=== PATIENT | male | born 1995 | race Caucasian/White ===

== ENCOUNTER 2018-01-19 11:05 | Emergency (ER) | payer SELFPAY ==
--- NOTE | 2018-01-19 13:51 | EDPHYS ---
Physician Documentation [facility] Name: Joshua Guadalupe Jr Age: 22 yrs Sex: Male : 1995 Arrival Date: 01/19/2018 Time: 11:06 Bed Treatment Private MD: None, None ED Physician Selvin Meneses HPI: 01/19 13:36 This 22 yrs old Male presents to ER via Ambulatory with complaints of Insect jmm Bite. 13:36 The patient presents with pain, that is acute, swelling. The complaints affect the jmm medial aspect of left thigh. Onset: The symptoms/episode began/occurred last night. Modifying factors: The symptoms are alleviated by nothing. the symptoms are aggravated by nothing. Associated signs and symptoms: Pertinent negatives fever. Treatment prior to arrival includes: home drainage. This is a 22 year old male with no chronic medical conditions that presents to the ED with left medial thigh swelling. Patient states he popped it last night which has allowed for relief. Patient denies fever. . Historical: - Allergies: 11:33 NKA; iw - Home Meds: :33 None [Active]; iw - PMHx: :33 None; iw - PSHx: 11:33 Hernia repair; iw - Immunization history:: Adult Immunizations not up to date. - Social history:: Smoking status: Patient uses tobacco products, smokes one-half pack cigarettes per day. - Ebola Screening: : Patient negative for fever greater than or equal to 101.5 degrees Fahrenheit, and additional compatible Ebola Virus Disease symptoms Patient denies exposure to infectious person Patient denies travel to an Ebola-affected area in the 21 days before illness onset No symptoms or risks identified at this time. - : The history from the nurse's notes was reviewed. ROS: 13:36 Constitutional: Negative for fever, chills, and weight loss, Cardiovascular: Negative jmm for chest pain, palpitations, and edema, Respiratory: Negative for shortness of breath, cough, wheezing, and pleuritic chest pain. 13:36 Skin: Positive for swelling. 13:36 All other systems are negative. Exam: 13:36 Head/Face: atraumatic. Eyes: EOMI, no conjunctival erythema appreciated Chest/axilla: jmm Normal chest wall appearance and motion. Cardiovascular: Regular rate and rhythm. No edema appreciated Respiratory: Normal respirations, no respiratory distress appreciated 13:36 Constitutional: The patient appears in no acute distress, alert, awake. 13:36 Skin: non fluctuant swelling is noted to the left medial thigh, area is mildly tender to palpation. 13:36 Neuro: Orientation: is normal, Mentation: is normal, Memory: is normal. 13:36 Psych: Behavior/mood is pleasant, cooperative. Vital Signs: 11:33 BP 133 / 53; Pulse 77; Resp 16; Temp 97.3(TE); Pulse Ox 98% on R/A; Weight 114.76 kg; iw Height 6 ft. 1 in. (185.42 cm); Pain 5/10; 11:33 Body Mass Index 33.38 (114.76 kg, 185.42 cm) iw MDM: 13:36 Patient medically screened. [facility] 13:36 Data interpreted: Pulse oximetry: on room air is 98 %. Interpretation: normal. [facility] 13:49 Data reviewed: vital signs, nurses notes. Counseling: I had a detailed discussion with mariah the patient and/or guardian regarding: the historical points, exam findings, and any diagnostic results supporting the discharge/admit diagnosis, the need for outpatient follow up, to return to the emergency department if symptoms worsen or persist or if there are any questions or concerns that arise at home. Administered Medications: No medications were administered Disposition: 16:40 Co-signature as Attending Physician, Selvin Meneses MD. rn Disposition: 01/19/18 13:50 Discharged to Home. Impression: Cellulitis of the left leg. - Condition is Stable. - Discharge Instructions: Skin Abscess. - Prescriptions for Bactrim DS 800- 160 mg Oral Tablet - take 1 tablet by ORAL route every 12 hours for 10 days; 20 tablet. - Medication Reconciliation Form, Thank You Letter, Antibiotic Education, Prescription Opioid Use, Work release form form. - Follow up: Private Physician; When: 2 - 3 days; Reason: Recheck today's complaints, Continuance of care, Re-evaluation by your physician. Signatures: Jesus Schmidt PA PA jmm Williams, Irene, Selvin Cormier RN, MD MD rn Smirch, Shelby, RN RN ss Corrections: (The following items were deleted from the chart) 14:14 13:50 01/19/2018 13:50 Discharged to Home. Impression: Cellulitis of the left leg. ss Condition is Stable. Forms are Medication Reconciliation Form, Thank You Letter, Antibiotic Education, Prescription Opioid Use. Follow up: Private Physician; When: 2 - 3 days; Reason: Recheck today's complaints, Continuance of care, Re-evaluation by your physician. balbir 17:49 11:33 The history from the nurse's notes was reviewed. balbir mcgregor
--- NOTE | 2018-01-19 13:51 | ER ---
Nurse's Notes [facility] Name: Joshua Guadalupe Jr Age: 22 yrs Sex: Male : 1995 Arrival Date: 01/19/2018 Time: 11:06 Bed Treatment Private MD: None, None Diagnosis: Cellulitis of the left leg Presentation: 01/19 11:31 Presenting complaint: Patient states: popped something on his leg last night, left a iw hole in leg, quarter size, left inner thigh, now it's more painful. Transition of care: patient was not received from another setting of care. Onset of symptoms was January 19, 2018. Risk Assessment: Do you want to hurt yourself or someone else? Patient reports no desire to harm self or others. Initial Sepsis Screen: Does the patient meet any 2 criteria? No. Patient's initial sepsis screen is negative. Does the patient have a suspected source of infection? No. Patient's initial sepsis screen is negative. Care prior to arrival: None. 11:31 Method Of Arrival: Ambulatory iw 11:31 Acuity: SIMIN 4 iw Historical: - Allergies: 11:33 NKA; iw - Home Meds: 11:33 None [Active]; iw - PMHx: 11:33 None; iw - PSHx: 11:33 Hernia repair; iw - Immunization history:: Adult Immunizations not up to date. - Social history:: Smoking status: Patient uses tobacco products, smokes one-half pack cigarettes per day. - Ebola Screening: : Patient negative for fever greater than or equal to 101.5 degrees Fahrenheit, and additional compatible Ebola Virus Disease symptoms Patient denies exposure to infectious person Patient denies travel to an Ebola-affected area in the 21 days before illness onset No symptoms or risks identified at this time. - : The history from the nurse's notes was reviewed. Vital Signs: 11:33 BP 133 / 53; Pulse 77; Resp 16; Temp 97.3(TE); Pulse Ox 98% on R/A; Weight 114.76 kg; iw Height 6 ft. 1 in. (185.42 cm); Pain 5/10; 11:33 Body Mass Index 33.38 (114.76 kg, 185.42 cm) iw ED Course: 11:06 Patient arrived in ED. sb2 11:07 None, None is Private Physician. sb2 11:32 Triage completed. iw 11:33 Arm band placed on. iw 13:15 Jesus Schmidt PA is PHCP. balbir 13:15 Selvin Meneses MD is Attending Physician. balbir Administered Medications: No medications were administered Outcome: 13:50 Discharge ordered by . balbir 14:14 Patient left the ED. Signatures: Jesus Schmidt PA PA jmm Williams, Irene RN RN Monique Smith RN RN Janny Cardenas sb2 Corrections: (The following items were deleted from the chart) 17:49 11:33 The history from the nurse's notes was reviewed. balbir mcgregor
[2018-01-19 21:07] VITALS: BP 133/53; TEMP 97.3; O2SAT 98
== END 2018-01-19 14:14 | disposition home or self-care (01) ==
LOC: ER 11:05
DX: L03.116 Cellulitis of left lower limb (principal); F17.210 Nicotine dependence, cigarettes, uncomplicated
CPT/HCPCS: 99281

== ENCOUNTER 2018-09-26 11:56 | Emergency (ER) | payer SELFPAY ==
--- NOTE | 2018-09-26 12:55 | ER ---
Nurse's Notes [facility] Name: Joshua Guadalupe Jr Age: 23 yrs Sex: Male : 1995 Arrival Date: 09/26/2018 Time: 11:59 Bed 5 Private MD: Diagnosis: Lower abdominal pain, unspecified;Unspecified abdominal hernia Presentation: 09/26 12:02 Presenting complaint: Patient states: since Friday, i had a pain on my L groin area hj and i had a hernia repair on my R groin, denies fever and chills;. Transition of care: patient was not received from another setting of care. Onset of symptoms was September 26, 2018. Risk Assessment: Do you want to hurt yourself or someone else? Patient reports no desire to harm self or others. Initial Sepsis Screen: Does the patient meet any 2 criteria? No. Patient's initial sepsis screen is negative. Does the patient have a suspected source of infection? No. Patient's initial sepsis screen is negative. Care prior to arrival: None. 12:02 Method Of Arrival: Ambulatory 12:02 Acuity: SIMIN 3 hj Triage Assessment: 12:08 General: Appears in no apparent distress. comfortable, Behavior is calm, cooperative, bp appropriate for age. Pain: Complains of pain in pelvis. EENT: No deficits noted. Neuro: No deficits noted. Cardiovascular: No deficits noted. Respiratory: No deficits noted. GI: No signs and/or symptoms were reported involving the gastrointestinal system. : Reports pain scrotum. Derm: No deficits noted. Musculoskeletal: No deficits noted. Historical: - Allergies: 12:03 NKA; hj - PMHx: 12:03 Hernia; hj - PSHx: 12:03 Hernia repair; hj - Immunization history:: Adult Immunizations up to date. - Social history:: Smoking status: Patient/guardian denies using tobacco. - Ebola Screening: : No symptoms or risks identified at this time. - Family history:: not pertinent. - Hospitalizations: : No recent hospitalization is reported. Screenin:10 Abuse screen: Denies threats or abuse. Denies injuries from another. Nutritional bp screening: No deficits noted. Tuberculosis screening: No symptoms or risk factors identified. Fall Risk None identified. Assessment: 12:10 General: SEE TRIAGE NOTE. bp 12:37 Reassessment: PER MD, PT CLEARED FOR MSE. bp Vital Signs: 12:04 BP 137 / 54; Pulse 73; Resp 18; Temp 98.1(O); Pulse Ox 98% on R/A; Weight 113.4 kg; hj Height 6 ft. 1 in. (185.42 cm); Pain 7/10; 12:04 Body Mass Index 32.98 (113.40 kg, 185.42 cm) ED Course: 11:59 Patient arrived in ED. mr 12:03 Triage completed. hj 12:03 Arm band placed on left wrist. hj 12:08 Doug Wang, RN is Primary Nurse. bp 12:10 Patient has correct armband on for positive identification. Placed in gown. Bed in low bp position. Call light in reach. Side rails up X2. Adult w/ patient. 12:22 Selvin Meneses MD is Attending Physician. rn 12:37 No provider procedures requiring assistance completed. Patient did not have IV access bp during this emergency room visit. Administered Medications: No medications were administered Outcome: 12:37 Medical screen evaluation completed per provider. Patient declined treatment. bp 12:37 Condition: stable 12:37 Following a medical screening exam, the patient was provided information regarding alternative care sites and resources available per registration personnel. 12:54 Discharge ordered by . rn 12:56 Patient left the ED. aj Signatures: Suzanne Romo RN Chantell Hennessy mr Selvin Meneses MD MD rn Joaquin, Henry, RN RN hj Peltier, Brian, PATRICIO RN bp Corrections: (The following items were deleted from the chart) 12:05 12:04 Pulse 73bpm; Resp 18bpm; Pulse Ox 98% RA; Temp 98.1F Oral; 113.4 kg; Height 6 ft. hj 1 in.; BMI: 32.9; Pain 7/10; hj
--- NOTE | 2018-09-26 12:55 | EDPHYS ---
Physician Documentation [facility] Name: Joshua Guadalupe Jr Age: 23 yrs Sex: Male : 1995 Arrival Date: 09/26/2018 Time: 11:59 Bed 5 Private MD: ED Physician Selvin Meneses HPI: 09/26 12:48 This 23 yrs old Male presents to ER via Ambulatory with complaints of Groin rn Pain. 12:48 The patient presents with abdominal pain in the lower abdomen. rn 12:48 Onset: The symptoms/episode began/occurred 3 day(s) ago. The symptoms do not radiate. rn Associated signs and symptoms: Pertinent positives: constipation, Pertinent negatives: blood in stools, dysuria, fever, testicular pain, vomiting, vomiting blood. The symptoms are described as achy. Modifying factors: The symptoms are alleviated by nothing, the symptoms are aggravated by bowel movements. Severity of pain: At its worst the pain was mild in the emergency department the pain is unchanged. The patient has not experienced similar symptoms in the past. The patient has not recently seen a physician. REports left groin/abd pain, intermittent, worse with bowel movement and passing gas, reports similar to previous right sided hernia but doesn't feel any swelling. No fever/vomiting. No blood in stool. . Historical: - Allergies: 12:03 NKA; hj - PMHx: 12:03 Hernia; hj - PSHx: 12:03 Hernia repair; hj - Immunization history:: Adult Immunizations up to date. - Social history:: Smoking status: Patient/guardian denies using tobacco. - Ebola Screening: : No symptoms or risks identified at this time. - Family history:: not pertinent. - Hospitalizations: : No recent hospitalization is reported. ROS: 12:48 Constitutional: Negative for fever, chills, and weight loss, Eyes: Negative for injury, rn pain, redness, and discharge, Cardiovascular: Negative for chest pain, palpitations, and edema, Respiratory: Negative for shortness of breath, cough, wheezing, and pleuritic chest pain, Abdomen/GI: Negative for nausea, vomiting, diarrhea MS/Extremity: Negative for injury and deformity, Skin: Negative for injury, rash, and discoloration, Neuro: Negative for headache, weakness, numbness, tingling, and seizure. Exam: 12:48 Constitutional: This is a well developed, well nourished patient who is awake, alert, rn and in no acute distress. Head/Face: Normocephalic, atraumatic. Eyes: Pupils equal round and reactive to light, extra-ocular motions intact. Lids and lashes normal. Conjunctiva and sclera are non-icteric and not injected. Cornea within normal limits. Periorbital areas with no swelling, redness, or edema. Cardiovascular: No pulse deficits. Respiratory: No increased work of breathing, no retractions or nasal flaring. Abdomen/GI: Soft, non-tender Male : Normal genitalia with no discharge or lesions. No masses or hernia palpated in inguinal canal. MS/ Extremity: Pulses equal, no cyanosis. Neurovascular intact. Full, normal range of motion. Equal circumference. Neuro: Awake and alert, GCS 15, oriented to person, place, time, and situation. Cranial nerves II-XII grossly intact. Motor strength 5/5 in all extremities. Sensory grossly intact. Cerebellar exam normal. Normal gait. Vital Signs: 12:04 BP 137 / 54; Pulse 73; Resp 18; Temp 98.1(O); Pulse Ox 98% on R/A; Weight 113.4 kg; hj Height 6 ft. 1 in. (185.42 cm); Pain 7/10; 12:04 Body Mass Index 32.98 (113.40 kg, 185.42 cm) hj MDM: 12:22 Patient medically screened. rn 12:48 Differential diagnosis: hernia, constipation, gas trapping. Data reviewed: vital signs, rn nurses notes, and as a result, I will discharge patient. Counseling: I had a detailed discussion with the patient and/or guardian regarding: the historical points, exam findings, and any diagnostic results supporting the discharge/admit diagnosis, the need for outpatient follow up, to return to the emergency department if symptoms worsen or persist or if there are any questions or concerns that arise at home. Special discussion: I discussed with the patient/guardian in detail that at this point there is no indication for admission to the hospital. It is understood, however, that if the symptoms persist or worsen the patient needs to return immediately for re-evaluation. Based on the history and exam findings, there is no indication for further emergent testing or inpatient evaluation. I discussed with the patient/guardian the need to see the general surgeon for further evaluation of the symptoms. ED course: Offered patient ct abdomen to further evaluate pain, possible small direct hernia given location and worsening with pressure/bowel movements, relieved by passing gas. Patient declines, and wishes to f/u as outpt. Return precautions given and understood.. Administered Medications: No medications were administered Disposition: 09/26/18 12:54 Discharged to Home as Medical Screen. Impression: Lower abdominal pain, unspecified, Unspecified abdominal hernia. - Condition is Stable. - Discharge Instructions: Abdominal Pain, Adult, Hernia, Adult. - Medication Reconciliation Form, Thank You Letter, Antibiotic Education, Prescription Opioid Use form. - Follow up: Private Physician; When: As needed; Reason: Recheck today's complaints, Re-evaluation by your physician. - Problem is new. - Symptoms have improved. Signatures: Suzanne Romo RN RN Selvin Tucker MD MD rn Joaquin, Henry, RN RN hj Peltier, Brian, RN RN bp Corrections: (The following items were deleted from the chart) 12:56 12:54 09/26/2018 12:54 Discharged to Home as Medical Screen. Impression: Lower aj abdominal pain, unspecified; Unspecified abdominal hernia. Condition is Stable. Forms are Medication Reconciliation Form, Thank You Letter, Antibiotic Education, Prescription Opioid Use. Follow up: Private Physician; When: As needed; Reason: Recheck today's complaints, Re-evaluation by your physician. Problem is new. Symptoms have improved. rn
[2018-09-26 13:15] VITALS: BP 137/54; TEMP 98.1; O2SAT 98
== END 2018-09-26 12:56 | disposition home or self-care (01) ==
LOC: ER 11:56
DX: K46.9 Unspecified abdominal hernia without obstruction or gangrene (principal)
CPT/HCPCS: 99281

== ENCOUNTER 2019-04-07 12:21 | Emergency (ER) | payer SELFPAY ==
--- NOTE | 2019-04-07 13:02 | RAD REPORT ---
EXAM DESCRIPTION: RAD - Chest Pa And Lat (2 Views) - 04/07/2019 12:55 pm CLINICAL HISTORY: Congestion;Cough Chest pain. COMPARISON: Chest Single View dated 01/06/2017 FINDINGS: Mild viral infiltrate/reactive airway disease pattern is evident. No focal consolidation t ypical of bacterial pneumonia seen. The heart is normal in size. No displaced fractures.
[2019-04-07] MEDS ORDERED: ALBUTEROL 2.5 MG/3 ML NEB SOL ONE (13:34)
[2019-04-07] MEDS ORDERED: IPRATROPIUM BROM 0.5MG/2.5ML ONE (13:34)
--- NOTE | 2019-04-07 14:34 | EDPHYS ---
Physician Documentation [facility] Name: Joshua Guadalupe Jr Age: 23 yrs Sex: Male : 1995 Arrival Date: 04/07/2019 Time: 12:22 Bed 23 Private MD: ED Physician Georgi Ward HPI: 04/07 13:39 This 23 yrs old Male presents to ER via Ambulatory with complaints of Cough, kb Chest Congestion. 13:39 The patient or guardian reports cough, that is intermittent, described as moderate, kb with no sputum. Onset: The symptoms/episode began/occurred 2 day(s) ago. Severity of symptoms: At their worst the symptoms were moderate, in the emergency department the symptoms are unchanged. Modifying factors: The symptoms are alleviated by nothing, the symptoms are aggravated by nothing. Associated signs and symptoms: The patient has no apparent associated signs or symptoms. The patient has not experienced similar symptoms in the past. The patient has not recently seen a physician. Pt reports cough and congestion for 2 days. States everyone in the house have had the same thing and he is just the last to get it. States everyone got over it pretty fast, but his is persisting. Historical: - Allergies: 12:31 NKA; ca1 - Home Meds: 12:31 None [Active]; ca1 - PMHx: 12:31 Hernia; ca1 - PSHx: 12:31 Hernia repair; ca1 - Immunization history:: Adult Immunizations up to date, Flu vaccine is not up to date. - Coronavirus screen:: The patient has NOT traveled to [place] in the past 14 days. The patient has NOT had contact with known/suspected case of Coronavirus?. - Social history:: Smoking status: Patient reports the use of cigarette tobacco products, smokes one-half pack cigarettes per day. - Ebola Screening: : Patient negative for fever greater than or equal to 101.5 degrees Fahrenheit, and additional compatible Ebola Virus Disease symptoms Patient denies exposure to infectious person Patient denies travel to an Ebola-affected area in the 21 days before illness onset No symptoms or risks identified at this time. ROS: 13:38 Constitutional: Negative for fever, chills, and weight loss, Neck: Negative for injury, kb pain, and swelling, Cardiovascular: Negative for chest pain, palpitations, and edema, Abdomen/GI: Negative for abdominal pain, nausea, vomiting, diarrhea, and constipation, Back: Negative for injury and pain, MS/Extremity: Negative for injury and deformity, Skin: Negative for injury, rash, and discoloration, Neuro: Negative for headache, weakness, numbness, tingling, and seizure. 13:38 ENT: Positive for sinus congestion. 13:38 Respiratory: Positive for cough. Exam: 13:38 Constitutional: This is a well developed, well nourished patient who is awake, alert, kb and in no acute distress. Head/Face: Normocephalic, atraumatic. ENT: Nares patent. No nasal discharge, no septal abnormalities noted. Tympanic membranes are normal and external auditory canals are clear. Oropharynx with no redness, swelling, or masses, exudates, or evidence of obstruction, uvula midline. Mucous membranes moist. Neck: Trachea midline, no thyromegaly or masses palpated, and no cervical lymphadenopathy. Supple, full range of motion without nuchal rigidity, or vertebral point tenderness. No Meningismus. Chest/axilla: Normal chest wall appearance and motion. Nontender with no deformity. No lesions are appreciated. Cardiovascular: Regular rate and rhythm with a normal S1 and S2. No gallops, murmurs, or rubs. Normal PMI, no JVD. No pulse deficits. Abdomen/GI: Soft, non-tender, with normal bowel sounds. No distension or tympany. No guarding or rebound. No evidence of tenderness throughout. Back: No spinal tenderness. No costovertebral tenderness. Full range of motion. Skin: Warm, dry with normal turgor. Normal color with no rashes, no lesions, and no evidence of cellulitis. MS/ Extremity: Pulses equal, no cyanosis. Neurovascular intact. Full, normal range of motion. Neuro: Awake and alert, GCS 15, oriented to person, place, time, and situation. Cranial nerves II-XII grossly intact. Motor strength 5/5 in all extremities. Sensory grossly intact. Cerebellar exam normal. Normal gait. 13:38 Respiratory: the patient does not display signs of respiratory distress, Respirations: normal, Breath sounds: wheezing: expiratory that is mild, is heard in the right middle lobe and right posterior middle lobe. Vital Signs: 12:31 BP 133 / 51; Pulse 105; Resp 19 S; Temp 98.4(O); Pulse Ox 98% on R/A; Weight 113.4 kg ca1 (R); Height 6 ft. 1 in. (185.42 cm) (R); Pain 3/10; 13:30 BP 128 / 68; Pulse 69; Resp 20; Pulse Ox 100% on R/A; vc 14:30 BP 114 / 61; Pulse 86; Resp 18; Pulse Ox 100% on R/A; vc 12:31 Body Mass Index 32.98 (113.40 kg, 185.42 cm) ca1 MDM: 13:14 Patient medically screened. kb 13:44 Data reviewed: vital signs, nurses notes, lab test result(s), radiologic studies. Data kb interpreted: Pulse oximetry: on room air is 98 %. Interpretation: normal. 14:31 Counseling: I had a detailed discussion with the patient and/or guardian regarding: the kb historical points, exam findings, and any diagnostic results supporting the discharge/admit diagnosis, lab results, radiology results, the need for outpatient follow up, a family practitioner, to return to the emergency department if symptoms worsen or persist or if there are any questions or concerns that arise at home. 04/07 12:32 Order name: Flu ca1 04/07 12:32 Order name: Strep ca1 04/07 12:41 Order name: Chest Pa And Lat (2 Views) XRAY kb 04/07 13:04 Order name: RAD; Complete Time: 13:04 EDMS 04/07 13:06 Order name: Group A Streptococcus Rapid Sc; Complete Time: 13:13 EDMS 04/07 13:15 Order name: Influenza Screen (A ; Complete Time: 13:19 EDMS 04/07 12:41 Order name: EKG; Complete Time: 12:42 ca1 04/07 12:41 Order name: EKG - Nurse/Tech; Complete Time: 12:42 ca1 Administered Medications: 13:35 Drug: AtroVENT Aerosol 0.5 mg Route: Inhalation; vc 13:36 Drug: Albuterol 2.5 mg Route: Inhalation; vc 14:53 Drug: predniSONE 40 mg Route: PO; vc 14:53 Follow up: Response: Medication administered at discharge. vc Disposition: 17:32 Co-signature as Attending Physician, Georgi Ward MD I agree with the assessment and kdr plan of care. Disposition: 04/07/19 14:31 Discharged to Home. Impression: Bronchitis, not specified as acute or chronic. - Condition is Stable. - Discharge Instructions: Acute Bronchitis, [id number], Viral Respiratory Infection, [id number]. - Prescriptions for Prednisone 20 mg Oral Tablet - take 1 tablet by ORAL route once daily for 5 days; 5 tablet. Albuterol Sulfate 90 mcg/actuation - inhale 1-2 puff by INHALATION route every 4-6 hours; 1 Inhaler. - Work release form, Medication Reconciliation Form, Thank You Letter, Antibiotic Education, Prescription Opioid Use form. - Follow up: Emergency Department; When: As needed; Reason: Worsening of condition. Follow up: Private Physician; When: 2 - 3 days; Reason: Recheck today's complaints, Continuance of care, Re-evaluation by your physician. Signatures: Dispatcher [employer] EDMS Martha Tobar, LIFE SKILLS COORDINATOR VOLUNTEER-C LIFE SKILLS COORDINATOR VOLUNTEER-CkGeorgi Bernal MD MD kdr Acob, Cheryl, RN RN ca1 Henrietta Kennedy RN RN vc Corrections: (The following items were deleted from the chart) 14:55 14:31 04/07/2019 14:31 Discharged to Home. Impression: Bronchitis, not specified as vc acute or chronic. Condition is Stable. Forms are Medication Reconciliation Form, Thank You Letter, Antibiotic Education, Prescription Opioid Use. Follow up: Emergency Department; When: As needed; Reason: Worsening of condition. Follow up: Private Physician; When: 2 - 3 days; Reason: Recheck today's complaints, Continuance of care, Re-evaluation by your physician. kb
--- NOTE | 2019-04-07 14:34 | ER ---
Nurse's Notes [facility] Name: Joshua Guadalupe Jr Age: 23 yrs Sex: Male : 1995 Arrival Date: 04/07/2019 Time: 12:22 Bed 23 Private MD: Diagnosis: Bronchitis, not specified as acute or chronic Presentation: 04/07 12:27 Presenting complaint: Patient states: Everybody in the house is congested. Now, I have ca1 congestion and cough since 3 days ago. My chest hurts when I cough too and radiates to my L arm. Reports Nausea. Denies vomiting, diarrhea, fever. Transition of care: patient was not received from another setting of care. Onset of symptoms was April 07, 2019. Risk Assessment: Do you want to hurt yourself or someone else? Patient reports no desire to harm self or others. Initial Sepsis Screen: Does the patient meet any 2 criteria? No. Patient's initial sepsis screen is negative. Does the patient have a suspected source of infection? No. Patient's initial sepsis screen is negative. Care prior to arrival: None. 12:27 Method Of Arrival: Ambulatory ca1 12:27 Acuity: SIMIN 3 ca1 Historical: - Allergies: 12:31 NKA; ca1 - Home Meds: 12:31 None [Active]; ca1 - PMHx: 12:31 Hernia; ca1 - PSHx: 12:31 Hernia repair; ca1 - Immunization history:: Adult Immunizations up to date, Flu vaccine is not up to date. - Coronavirus screen:: The patient has NOT traveled to [place] in the past 14 days. The patient has NOT had contact with known/suspected case of Coronavirus?. - Social history:: Smoking status: Patient reports the use of cigarette tobacco products, smokes one-half pack cigarettes per day. - Ebola Screening: : Patient negative for fever greater than or equal to 101.5 degrees Fahrenheit, and additional compatible Ebola Virus Disease symptoms Patient denies exposure to infectious person Patient denies travel to an Ebola-affected area in the 21 days before illness onset No symptoms or risks identified at this time. Screenin:44 Abuse screen: Denies threats or abuse. Nutritional screening: No deficits noted. vc Tuberculosis screening: No symptoms or risk factors identified. Fall Risk None identified. Assessment: 13:40 General: Appears in no apparent distress. uncomfortable, Behavior is calm, cooperative, vc appropriate for age. Pain: Complains of pain in left lateral anterior chest Pain radiates to left upper arm. Neuro: Level of Consciousness is awake, alert, obeys commands, Oriented to person, place, time. Cardiovascular: Patient's skin is warm and dry. Respiratory: Airway is patent Respiratory effort is even, unlabored, Respiratory pattern is regular, symmetrical, Breath sounds are clear bilaterally. in right upper lobe, left upper lobe, right middle lobe, left lower lobe and right lower lobe. Respiratory: Breath sounds are diminished bilaterally. in left posterior upper lobe, right posterior upper lobe, left posterior lower lobe, right posterior middle lobe and right posterior lower lobe. GI: No signs and/or symptoms were reported involving the gastrointestinal system. : No signs and/or symptoms were reported regarding the genitourinary system. EENT: No signs and/or symptoms were reported regarding the EENT system. Derm: Skin temperature is warm. Musculoskeletal: Circulation, motion, and sensation intact. Range of motion: intact in all extremities. 14:30 Reassessment: Patient and/or family updated on plan of care and expected duration. Pain vc level reassessed. Patient is alert, oriented x 3, equal unlabored respirations, skin warm/dry/pink. Patient states symptoms have improved. Vital Signs: 12:31 BP 133 / 51; Pulse 105; Resp 19 S; Temp 98.4(O); Pulse Ox 98% on R/A; Weight 113.4 kg ca1 (R); Height 6 ft. 1 in. (185.42 cm) (R); Pain 3/10; 13:30 BP 128 / 68; Pulse 69; Resp 20; Pulse Ox 100% on R/A; vc 14:30 BP 114 / 61; Pulse 86; Resp 18; Pulse Ox 100% on R/A; vc 12:31 Body Mass Index 32.98 (113.40 kg, 185.42 cm) ca1 ED Course: 12:22 Patient arrived in ED. ag5 12:30 Triage completed. ca1 12:30 Martha Tobar FNP-C [facility]. kb 12:30 Georgi Ward MD is Attending Physician. kb 12:31 Arm band placed on right wrist. ca1 12:42 EKG completed in triage. Results shown to MD. ca1 13:28 Calcote, Henrietta, RN is Primary Nurse. vc 13:44 Patient has correct armband on for positive identification. vc 14:53 No provider procedures requiring assistance completed. Patient did not have IV access vc during this emergency room visit. Administered Medications: 13:35 Drug: AtroVENT Aerosol 0.5 mg Route: Inhalation; vc 13:36 Drug: Albuterol 2.5 mg Route: Inhalation; vc 14:53 Drug: predniSONE 40 mg Route: PO; vc 14:53 Follow up: Response: Medication administered at discharge. vc Outcome: 14:31 Discharge ordered by . kb 14:54 Discharged to home ambulatory, with significant other. vc 14:54 Condition: good 14:54 Discharge instructions given to patient, Instructed on discharge instructions, follow up and referral plans. medication usage, Demonstrated understanding of instructions, follow-up care, medications, Prescriptions given X 2. 14:55 Patient left the ED. vc Signatures: Martha Tobar, STORE OPERATIONS MANAGER-C STORE OPERATIONS MANAGER-Stephanie Nguyen RN RN ca1 Chloe Denney ag5 Henrietta Kennedy RN RN vc Corrections: (The following items were deleted from the chart) 13:13 12:27 Acuity: SIMIN 4 ca1 ca1
[2019-04-07] MEDS ORDERED: predniSONE 20 MG TAB ONE (14:49)
--- NOTE | 2019-04-07 17:58 | EKG ---
Test Date: 2019-04-07 Test Time: 12:39:09 Visor Installer: APRIL MEASUREMENT RESULTS: Intervals: Rate: 81 MO: 124 QRSD: 80 QT: 316 QTc: 367 Hale: P: 62 MO: 124 QRS: 99 T: 2 INTERPRETIVE STATEMENTS: Normal sinus rhythm with sinus arrhythmia Rightward axis Borderline ECG Compared to ECG 01/01/2012 11:23:40 Right-axis deviation now present Short MO interval no longer present Electronically Signed On 04-07-19 17:57:59 CREDIT UNION EXAMINER by Guillermo Garay
[2019-04-08 20:31] VITALS: TEMP 98.4
[2019-04-08 20:32] VITALS: O2SAT 100
[2019-04-08 20:34] VITALS: BP 114/61
== END 2019-04-07 14:55 | disposition home or self-care (01) ==
LOC: ER 12:21
DX: J40 Bronchitis, not specified as acute or chronic (principal); F17.210 Nicotine dependence, cigarettes, uncomplicated
CPT/HCPCS: 71046; 87070; 87081; 87804; 93005; 99284; J7512

== ENCOUNTER 2020-03-02 04:28 | Observation (INO) | payer SELFPAY ==
[2020-03-02 05:44] LABS: Absolute Lymphocytes (CBC) 1.9 K/uL (0.7-4.9); Basophils % 0.4 % (0-1.3); Hematocrit 44.4 % (39.6-49.0); Lymphocytes % 18.3 % (15.3-44.8); RBC Red Blood Cell Count 5.36 M/uL (4.33-5.43)
[2020-03-02 05:46] LABS: ALT/SGPT 44 U/L (12-78); AST/SGOT 24 U/L (15-37); Albumin 3.8 g/dL (3.4-5.0); Alkaline Phosphatase 133 U/L (45-117); BUN Blood Urea Nitrogen 23 mg/dL (7-18); Bicarbonate 27 mmol/L (21-32); Bilirubin Direct < 0.1 mg/dL (0-0.2); Bilirubin Total 0.5 mg/dL (0.2-1.0); Glucose Level 101 mg/dL (74-106); Lipase 91 U/L (73-393); Protein, Total 7.4 g/dL (6.4-8.2); Sodium Level 138 mmol/L (136-145)
[2020-03-02] MEDS ORDERED: NA CHLORIDE 0.9% 1,000 ML ONE ×2 (05:46→10:22)
--- NOTE | 2020-03-02 05:58 | ER ---
Nurse's Notes [facility] Name: Joshua Guadalupe Jr Age: 24 yrs Sex: Male : 1995 Arrival Date: 03/02/2020 Time: 04:29 Bed 6 Private MD: Diagnosis: Abdominal tenderness;Acute appendicitis Presentation: 03/02 04:45 Chief complaint: Patient states: Since 5 pm yesterday i was having RLQ and suprapubic mg2 pain. i have history of right inguinal sx last 2018 and kidney stones 3 weeks ago but im also concerned about my appendix. Coronavirus screen: Client denies travel out of the [place] in the last 14 days. Ebola Screen: No symptoms or risks identified at this time. Initial Sepsis Screen: Does the patient meet any 2 criteria? No. Patient's initial sepsis screen is negative. Does the patient have a suspected source of infection? No. Patient's initial sepsis screen is negative. Risk Assessment: Do you want to hurt yourself or someone else? Patient reports no desire to harm self or others. Onset of symptoms was March 01, 2020. 04:45 Method Of Arrival: Ambulatory mg2 04:45 Acuity: SIMIN 3 mg2 Historical: - Allergies: 04:49 NKA; mg2 - Home Meds: 04:49 None [Active]; mg2 - PMHx: 04:49 Hernia; mg2 - PSHx: 04:49 None; right inguinal hernia sx; mg2 - Immunization history:: Flu vaccine is not up to date. - Social history:: Smoking status: Patient reports the use of cigarette tobacco products, denies chronic smoking, but will smoke occasionally. - Family history:: not pertinent. Screenin:02 Abuse screen: Denies threats or abuse. Denies injuries from another. Nutritional mg2 screening: No deficits noted. Tuberculosis screening: No symptoms or risk factors identified. Fall Risk IV access (20 points). Assessment: 05:01 General: Appears in no apparent distress. comfortable, Behavior is calm, cooperative. mg2 Pain: Complains of pain in abdomen. Neuro: Level of Consciousness is awake, alert, obeys commands, Oriented to person, place, time, situation. Cardiovascular: Capillary refill < 3 seconds Patient's skin is warm and dry. Respiratory: Airway is patent Respiratory effort is even, unlabored, Respiratory pattern is regular, symmetrical. GI: Reports lower abdominal pain, diarrhea. : No signs and/or symptoms were reported regarding the genitourinary system. EENT: No signs and/or symptoms were reported regarding the EENT system. Derm: Skin is intact, is healthy with good turgor, Skin is pink, warm \T\ dry. normal. Musculoskeletal: Circulation, motion, and sensation intact. Capillary refill < 3 seconds. 07:28 Reassessment: Patient appears in no apparent distress at this time. Patient and/or ss family updated on plan of care and expected duration. Pain level reassessed. Patient is alert, oriented x 3, equal unlabored respirations, skin warm/dry/pink. Report received from PATRICIO Davis. Awaiting for Dr. Frey to consult. General: Appears in no apparent distress. comfortable, Behavior is calm, cooperative. Pain: Complains of pain in right lower quadrant Pain currently is 4 out of 10 on a pain scale. Quality of pain is described as aching, tender, Is continuous. Neuro: Level of Consciousness is awake, alert, obeys commands, Oriented to person, place, time, situation. Respiratory: Airway is patent Respiratory effort is even, unlabored, Respiratory pattern is regular, symmetrical. GI: Patient currently denies nausea, vomiting. : No signs and/or symptoms were reported regarding the genitourinary system. Derm: Skin is pink, warm \T\ dry. 08:25 Reassessment: Patient appears in no apparent distress at this time. Patient and/or ss family updated on plan of care and expected duration. Pain level reassessed. Vital Signs: 04:45 BP 117 / 71; Pulse 88; Resp 18; Temp 97; Pulse Ox 100% on R/A; Weight 117.93 kg; Height mg2 6 ft. 1 in. (185.42 cm); Pain 7/10; 07:30 BP 121 / 52; Pulse 72; Resp 15; Temp 97.7(TE); Pulse Ox 100% on R/A; Pain 4/10; ss 04:45 Body Mass Index 34.30 (117.93 kg, 185.42 cm) mg2 ED Course: 04:29 Patient arrived in ED. cl3 04:45 Ryan Aponte RN is Primary Nurse. mg2 04:48 Triage completed. mg2 04:48 Arm band placed on. mg2 05:02 Patient has correct armband on for positive identification. mg2 05:02 No provider procedures requiring assistance completed. Urine collected: clean catch mg2 specimen. Inserted saline lock: 20 gauge in left antecubital area, using aseptic technique. Blood collected. 05:13 Greg Hutchinson MD is Attending Physician. [facility] 05:56 Joshua Frey MD is Hospitalizing Provider. [place] Administered Medications: 05:32 Drug: NS 0.9% 1000 ml Route: IV; Rate: 1 bolus; Site: left antecubital; mg2 07:31 Follow up: IV Status: Completed infusion; IV Intake: 1000ml ss 06:13 Drug: Zosyn 3.375 grams Route: IVPB; Infused Over: 60 mins; Site: left antecubital; mg2 07:30 Follow up: IV Status: Completed infusion ss Intake: 07:31 IV: 1000ml; Total: 1000ml. ss Outcome: 05:56 Decision to Hospitalize by Provider. [facility] 07:28 Condition: stable ss 07:28 Instructed on the need for admit. 11:12 Patient left the ED. ss Signatures: Greg Hutchinson MD MD cha Smirch, Shelby, RN RN Ryan Aponte, RN RN mg2 Wai Nagel cl3
--- NOTE | 2020-03-02 05:58 | EDPHYS ---
Physician Documentation [facility] Name: Joshua Guadalupe Jr Age: 24 yrs Sex: Male : 1995 Arrival Date: 03/02/2020 Time: 04:29 Bed 6 Private MD: ED Physician Greg Hutchinson HPI: 03/02 05:47 This 24 yrs old Male presents to ER via Ambulatory with complaints of Low jaiden Abdominal Pain. 05:47 The patient presents with abdominal pain right lower quadrant. Onset: The jaiden symptoms/episode began/occurred 1 day(s) ago. The symptoms do not radiate. Associated signs and symptoms: Pertinent positives: anorexia. The symptoms are described as crampy, dull, steady. Modifying factors: The symptoms are alleviated by remaining still, the symptoms are aggravated by movement, pressure, running. Severity of pain: At its worst the pain was moderate in the emergency department the pain has improved. The patient has not experienced similar symptoms in the past. Historical: - Allergies: 04:49 NKA; mg2 - Home Meds: 04:49 None [Active]; mg2 - PMHx: 04:49 Hernia; mg2 - PSHx: 04:49 None; right inguinal hernia sx; mg2 - Immunization history:: Flu vaccine is not up to date. - Social history:: Smoking status: Patient reports the use of cigarette tobacco products, denies chronic smoking, but will smoke occasionally. - Family history:: not pertinent. ROS: 05:47 Constitutional: Negative for fever, chills, and weight loss, Eyes: Negative for injury, jaiden pain, redness, and discharge, ENT: Negative for injury, pain, and discharge, Neck: Negative for injury, pain, and swelling, Cardiovascular: Negative for chest pain, palpitations, and edema, Respiratory: Negative for shortness of breath, cough, wheezing, and pleuritic chest pain, Back: Negative for injury and pain, : Negative for injury, bleeding, discharge, and swelling, MS/Extremity: Negative for injury and deformity, Skin: Negative for injury, rash, and discoloration, Neuro: Negative for headache, weakness, numbness, tingling, and seizure, Psych: Negative for depression, anxiety, suicide ideation, homicidal ideation, and hallucinations, Allergy/Immunology: Negative for hives, rash, and allergies, Endocrine: Negative for neck swelling, polydipsia, polyuria, polyphagia, and marked weight changes, Hematologic/Lymphatic: Negative for swollen nodes, abnormal bleeding, and unusual bruising. 05:47 Abdomen/GI: Positive for abdominal pain, of the right lower quadrant. Exam: 05:47 Constitutional: This is a well developed, well nourished patient who is awake, alert, jaiden and in no acute distress. Head/Face: Normocephalic, atraumatic. Eyes: Pupils equal round and reactive to light, extra-ocular motions intact. Lids and lashes normal. Conjunctiva and sclera are non-icteric and not injected. Cornea within normal limits. Periorbital areas with no swelling, redness, or edema. ENT: Nares patent. No nasal discharge, no septal abnormalities noted. Tympanic membranes are normal and external auditory canals are clear. Oropharynx with no redness, swelling, or masses, exudates, or evidence of obstruction, uvula midline. Mucous membranes moist. Neck: Trachea midline, no thyromegaly or masses palpated, and no cervical lymphadenopathy. Supple, full range of motion without nuchal rigidity, or vertebral point tenderness. No Meningismus. Chest/axilla: Normal chest wall appearance and motion. Nontender with no deformity. No lesions are appreciated. Cardiovascular: Regular rate and rhythm with a normal S1 and S2. No gallops, murmurs, or rubs. Normal PMI, no JVD. No pulse deficits. Respiratory: Lungs have equal breath sounds bilaterally, clear to auscultation and percussion. No rales, rhonchi or wheezes noted. No increased work of breathing, no retractions or nasal flaring. Back: No spinal tenderness. No costovertebral tenderness. Full range of motion. Male : Normal genitalia with no discharge or lesions. Skin: Warm, dry with normal turgor. Normal color with no rashes, no lesions, and no evidence of cellulitis. MS/ Extremity: Pulses equal, no cyanosis. Neurovascular intact. Full, normal range of motion. Neuro: Awake and alert, GCS 15, oriented to person, place, time, and situation. Cranial nerves II-XII grossly intact. Motor strength 5/5 in all extremities. Sensory grossly intact. Cerebellar exam normal. Normal gait. Psych: Awake, alert, with orientation to person, place and time. Behavior, mood, and affect are within normal limits. 05:47 Abdomen/GI: Inspection: abdomen appears normal, Bowel sounds: normal, Palpation: abdomen is soft and non-tender, soft, nontender, mild abdominal tenderness, severe abdominal tenderness, voluntary guarding, is elicited in the right lower quadrant, no appreciated organomegaly, Indicators: McBurney's point is tender, Liver: no appreciated palpable abnormalities, Hernia: not appreciated. Vital Signs: 04:45 BP 117 / 71; Pulse 88; Resp 18; Temp 97; Pulse Ox 100% on R/A; Weight 117.93 kg; Height mg2 6 ft. 1 in. (185.42 cm); Pain 7/10; 07:30 BP 121 / 52; Pulse 72; Resp 15; Temp 97.7(TE); Pulse Ox 100% on R/A; Pain 4/10; ss 04:45 Body Mass Index 34.30 (117.93 kg, 185.42 cm) mg2 MDM: 05:13 Patient medically screened. jaiden 05:53 Differential diagnosis: appendicitis, bowel obstruction, cholecystitis, Cholelithiasis, jaiden diverticulitis, Irritable bowel syndrome, pancreatitis, Peptic Ulcer Disease, Peritonitis, Pyelonephritis, Ureterolithiasis, urinary tract infection. Data reviewed: vital signs, nurses notes, lab test result(s), EKG, radiologic studies, CT scan. Data interpreted: monitoring and evaluation advisor: rate is 88 beats/min, rhythm is regular, Pulse oximetry: on room air is 100 %. Test interpretation: by ED physician or midlevel provider:. Counseling: I had a detailed discussion with the patient and/or guardian regarding: the historical points, exam findings, and any diagnostic results supporting the discharge/admit diagnosis, lab results, radiology results, the need for further work-up and treatment in the hospital. 03/02 04:49 Order name: Basic Metabolic Panel; Complete Time: 06:17 mg2 03/02 04:49 Order name: CBC with Diff; Complete Time: 05:45 mg2 03/02 04:49 Order name: Hepatic Function; Complete Time: 06:17 mg2 03/02 04:49 Order name: Lipase; Complete Time: 06:17 mg2 03/02 05:08 Order name: Urine Dipstick--Ancillary (enter results); Complete Time: 06:24 mw2 03/02 06:05 Order name: Basic Metabolic Panel EDMS 03/02 05:15 Order name: CT Abd/Pelvis - IV Contrast Only jaiden 03/02 06:05 Order name: Basic Metabolic Panel EDMS 03/02 06:05 Order name: CBC with Automated Diff EDMS 03/02 06:05 Order name: CBC with Automated Diff EDMS 03/02 06:14 Order name: COVID-19 mg2 03/02 06:48 Order name: CORONAVIRUS EDMS 03/02 07:36 Order name: SARS-COV-2 RT PCR EDMS 03/02 04:49 Order name: IV Saline Lock; Complete Time: 05:01 mg2 03/02 04:49 Order name: Labs collected and sent; Complete Time: 05: mg2 03/02 04:49 Order name: Urine Dipstick-Ancillary (obtain specimen); Complete Time: 05:01 mg2 03/02 06:05 Order name: NPO EDMS Administered Medications: 05:32 Drug: NS 0.9% 1000 ml Route: IV; Rate: 1 bolus; Site: left antecubital; mg2 07:31 Follow up: IV Status: Completed infusion; IV Intake: 1000ml 06:13 Drug: Zosyn 3.375 grams Route: IVPB; Infused Over: 60 mins; Site: left antecubital; mg2 07:30 Follow up: IV Status: Completed infusion ss Disposition: 03/02/20 05:56 Hospitalization ordered by Joshua Buenrostro for Observation. Preliminary diagnosis are Abdominal tenderness, Acute appendicitis. - Bed requested for [facility] ER HOLD. - Status is Observation. ss - Condition is Stable. - Problem is new. - Symptoms have improved. Signatures: Dispatcher [employer] EDNM Greg Hutchinson MD MD cha Smirch, Shelby, RN RN Aaliyah Rojas, PATRICIO RN Ryan Aponte, PATRICIO RN mg2 Corrections: (The following items were deleted from the chart) 06:21 05:56 Hospitalization Ordered by Joshua Buenrostro MD for Observation. Preliminary cg diagnosis is Abdominal tenderness; Acute appendicitis. Bed requested for Telemetry/MedSurg (observation). Status is Observation. Condition is Stable. Problem is new. Symptoms have improved. [facility] 11:12 06:21 03/02/2020 05:56 Hospitalization Ordered by Joshua Buenrostro MD for Observation. ss Preliminary diagnosis is Abdominal tenderness; Acute appendicitis. Bed requested for [facility] ER HOLD. Status is Observation. Condition is Stable. Problem is new. Symptoms have improved.
[2020-03-02] MEDS ORDERED: ACETAMINOPHEN 500 MG TAB PO PRN (06:00)
[2020-03-02] MEDS ORDERED: ONDANSETRON 4 MG/2 ML VIAL IV PRN ×2 (06:00→12:28)
[2020-03-02] MEDS ORDERED: MORPHINE 4 MG/ML SYR IV PRN ×2 (06:00→12:28)
[2020-03-02] MEDS ORDERED: NA CHLORIDE 0.9% 1,000 ML IV SCH (06:00)
[2020-03-02 06:18] LABS: Urine Blood NEGATIVE (NEG); Urine Glucose NEGATIVE (NEG); Urine Protein NEGATIVE (NEG); Urine Specific Gravity >1.030 (1.005-1.030)
[2020-03-02] MEDS ORDERED: PIPER/TAZO/NS 3.375gm 3.375 GM/100 ML BAG ONE (06:22)
[2020-03-02] MEDS ORDERED: FAMOTIDINE 20 MG/2 ML VIAL IV SCH (09:00)
[2020-03-02] MEDS ORDERED: FAMOTIDINE 20 MG/2 ML VIAL IV ONE (10:23)
[2020-03-02] MEDS ORDERED: PIPER/TAZO/NS 3.375gm 3.375 GM/100 ML BAG IVPB SCH (10:30)
[2020-03-02] MEDS ORDERED: propofoL 200 MG/20 ML VIAL IV ONE (11:24)
[2020-03-02] MEDS ORDERED: LIDOCAINE 1% MPF 5 ML VIAL ONE (11:25)
[2020-03-02] MEDS ORDERED: LIDOCAINE 1% MPF 2 ML AMPULE ONE (11:25)
[2020-03-02] MEDS ORDERED: ROCURONIUM 50 MG/5 ML VIAL IV ONE (11:25)
[2020-03-02] MEDS ORDERED: FENTANYL CITR 100 MCG/2 ML ONE ×2 (11:27→12:10)
--- NOTE | 2020-03-02 11:35 | P.HP ---
Date of Service: 03/02/20 PC: HPC: This 24-year-old male presents emergency room with severe right lower quadrant abdominal pain for diagnosis and treatment. PMH: Patient has experienced sudden onset of right lower quadrant abdominal pain. Pain intensified over the course of the last 12 hr. Got to the point were was uncomfortable for him to walk. PSHx: Negative SOC: No known allergies SYS REVIEW: No cough, wheeze, shortness of breath. No chest pain or palpitations. Denies any urinary complaints O/E awake alert vital signs are stable HEENT: Within normal limits Chest: Air entry is equal bilaterally ABD: Tender with guarding in the right lower quadrant LOCO: Intact DATA: CT scan supports clinical impression of acute appendicitis IMPRESSION: Acute abdomen with appendicitis PLAN: I will take him the operating room for laparoscopic possible open appendectomy. The risks of this procedure have been discussed. The possibility of bleeding, infection, injury to bowel and surrounding structures were explained. The possible need for an open and/or further surgeries and procedures was discussed. He understands and wants to proceed. I also spoke to his and she understands as well.
[2020-03-02] MEDS ORDERED: ONDANSETRON 4 MG/2 ML VIAL ONE (11:54)
[2020-03-02] MEDS ORDERED: KETOROLAC 30 MG/ML INJ ONE (11:54)
[2020-03-02] MEDS ORDERED: dexAMETHasone 10 MG/ML VIAL ONE (11:54)
[2020-03-02] MEDS ORDERED: PIPER/TAZO/NS 3.375gm 3.375 GM/100 ML BAG IVPB ONE (12:00)
[2020-03-02] MEDS ORDERED: GLYCOPYRROLATE 0.2 MG/ML SYR ONE (12:09)
[2020-03-02] MEDS ORDERED: NEOSTIGMINE 1 MG/ML -5 ML ONE (12:10)
--- NOTE | 2020-03-02 12:22 | P.OP ---
Preoperative diagnosis: Acute abdomen Postoperative diagnosis: Acute appendicitis Primary procedure: Laparoscopic appendectomy Secondary procedure: Alexia block Anesthesia: General Estimated blood loss: Less than 10 cc Specimen: 1 appendix Operative Technique: The patient was brought to the operating room, placed supine on the table. After the induction of adequate general endotracheal anesthesia, the area of the abdomen was prepped with a DuraPrep solution, and he was draped in the usual aseptic manner. A subumbilical incision was made. This was brought down through the skin and subcutaneous tissue. The Visiport was cavity and created pneumoperitoneum to approximately 12 mm of mercury. Under direct vision a 5 mm trocar was placed in the lower midline and another 5 mm in the right upper quadrant. The patient was then positioned in Trendelenburg and rolled to the left side. We were able to visualize right lower quadrant. We could see the patient did have a AE acutely inflamed appendix. It abutted just at the area of the internal ring on the anterior abdominal wall. The appendix was gently mobilize. . The appendix was then gently dissected from the surrounding structures. The junction of the appendix with the with the cecum was identified. An opening was made in the mesentery of the appendix. The 10 mm trocar was now converted to a 12 with the camera moved to the right upper port with a 5 mm view. The linear Stapler was introduced into the peritoneal cavity. It was placed across the base of the appendix and fired. A vascular reload was then placed into the Stapler. The mesentery of the appendix was then taken down. The appendix having been was placed into an Endo-Catch, brought out through the umbilical port site. Attention was turned back towards the right lower quadrant. The area was gently irrigated with the saline solution. The effluent was aspirated. 0.25% Marcaine was aerosolize into the right lower quadrant. Attention was now turned towards the anterior abdominal wall. A Alexia block was done on the right side of the abdomen. This was done using again 0.25% Marcaine. Attention was turned towards the umbilical trocar. Using the endo-close absorbable sutures were placed to close the defect. The patient was now returned to the neutral position on the OR table. The pneumoperitoneum was collapsed, the umbilical noble tures tied, and akira applied to the skin. At the end of the procedure the patient was in stable condition and sent to the recovery room. Needle sponge and instrument count were correct. 1 specimen was sent for histopathology. Sterile dressings had been applied. Complications: None Transferred to: Recovery Room Condition: Good
[2020-03-02] MEDS ORDERED: HYDROCODONE/APAP 7.5/325 MG TAB PO PRN (12:28)
[2020-03-02] MEDS ORDERED: HYDROCODONE/APAP 7.5/325 MG TAB ONE (13:27)
[2020-03-02 13:43] VITALS: TEMP 97.2
[2020-03-02 14:09] VITALS: BP 141/57; O2SAT 98
[2020-03-02] MEDS ORDERED: PIPERACILLIN-TAZO-DEXTROSE,ISO 3.375 GM/50 ML BAG IV SCH (17:00)
--- NOTE | 2020-03-02 17:16 | RAD REPORT ---
EXAM DESCRIPTION: CT ABDOMEN AND PELVIS WITH CONTRAST CLINICAL HISTORY: ABD PAIN COMPARISON: None Available. TECHNIQUE: CT of the abdomen and pelvis performed following IV administration of iodinated contras t. FINDINGS: Lung Bases: The visualized lung bases are clear. Bones: No destructive bone lesions identified. Abdomen: Liver: The liver has normal size and density. No intrahepatic biliary dilatation. Gallbladder: No calcified gallstones. Spleen, Pancreas, and Adrenal Glands: The spleen, pancreas, and adrenal glands are unremarkable. Kidneys: No hydronephrosis or obstructing calculus. Vasculature: The aorta and IVC have normal caliber and position. The portal vein is patent. The pro ximal visceral and renal arteries are patent. Stomach: The stomach and duodenum have normal course. Other: No free intraperitoneal air. No free fluid or lymphadenopathy. Pelvis: Bladder: Urinary bladder is unremarkable. Bowel: No dilated loops of large or small bowel. Appendix: Dilated appendix with distal appendicolith and periappendiceal inflammatory change. Pelvis: Prostate is not enlarged. IMPRESSION: 1. Findings compatible with uncomplicated acute appendicitis. This exam was performed according to our departmental dose-optimization program, which includes autom ated exposure control, adjustment of the mA and/or kV according to patient size and/or use of iterati ve reconstruction technique. Electronically signed by: Dannie Osei 03/02/2020 6:22 AM BRICK CARRIER Due to temporary technical issues with the PACS/Fluency reporting system, reports are being signed by the in house radiologists without review as a courtesy to insure prompt reporting. The interpreting radiologist is fully responsible for the content of the report.
== END 2020-03-02 14:06 | disposition home or self-care (01) ==
LOC: ER 04:28 → ERHOLD 06:06
PROVIDERS: ADMIT Surgery; ATTEND Surgery
PROC: 0DTJ4ZZ Resection of Appendix, Percutaneous Endoscopic Approach (ICD-10-PCS; principal; 2020-03-02 10:30)
DX: K35.80 Unspecified acute appendicitis (principal); F17.210 Nicotine dependence, cigarettes, uncomplicated; Z20.822 Contact with and (suspected) exposure to COVID-19
CPT/HCPCS: 36415; 74177; 80048; 80076; 81003; 83690; 85025; 88304; 96361; 96365; 99283; G0378; J1100; J2001; J2405; J2543; J2704; J2710; J3010; J7030; Q9967; U0003

== ENCOUNTER 2020-04-22 23:59 | Emergency (ER) | payer SELFPAY ==
[2020-04-23 00:34] LABS: Absolute Lymphocytes (CBC) 2.2 K/uL (0.7-4.9); Hematocrit 41.6 % (39.6-49.0); Lymphocytes % 30.4 % (15.3-44.8); MPV 8.3 fL (7.6-11.3); RBC Red Blood Cell Count 5.02 M/uL (4.33-5.43)
[2020-04-23 00:39] LABS: Protime INR 1.09
--- NOTE | 2020-04-23 00:49 | EDPHYS ---
Physician Documentation [facility] Name: Joshua Guadalupe Jr Age: 24 yrs Sex: Male : 1995 Arrival Date: 04/23/2020 Time: 00:00 Bed 3 Private MD: ED Physician Jani Sood HPI: 04/23 00:17 This 24 yrs old Male presents to ER via EMS with complaints of Altered Mental mh7 Status. 00:17 The patient presents with decreased responsiveness. Onset: The symptoms/episode mh7 began/occurred just prior to arrival, today. Possible causes: alcohol, Multiple drinks tonight. Associated signs and symptoms: Pertinent negatives: abdominal pain, agitation, ataxia, blurred vision, chest pain, combativeness, confusion, diaphoresis, diarrhea, dizziness, headache, lightheadedness, numbness, palpitations, seizure, shortness of breath, tingling, vertigo, vomiting, weakness. Current symptoms: In the emergency department the patient's symptoms have resolved, the patient is alert and fully oriented, has normal speech, has normal responsiveness, has no confusion. Patient's baseline: Neuro: alert and fully oriented, Motor: no deficits, Ambulation: walks without assistance, Speech: normal. Per EMS patient's called due to patient being unresponsive in bed this evening and appeared to have change in skin color. Patient awoke on scene after several minutes and AAA\T\Ox 3. He admits to drinking several shots of vodka and whisky and multiple beers. States that he normally does not drink that amount but wanted to relax since he has been working a lot recently. Denies suicidal/homicidal ideation or auditory/visual hallucinations.. Historical: - Allergies: 00:17 NKA; lp1 - Home Meds: 00:17 None [Active]; lp1 - PMHx: 00:17 Hernia; lp1 - PSHx: 00:17 Appendectomy; Hernia repair; lp1 - Immunization history:: Flu vaccine status is unknown. - Social history:: Smoking status: . ROS: 00:17 Constitutional: Negative for fever, chills, and weight loss, Eyes: Negative for injury, mh7 pain, redness, and discharge, ENT: Negative for injury, pain, and discharge, Neck: Negative for injury, pain, and swelling, Cardiovascular: Negative for chest pain, palpitations, and edema, Respiratory: Negative for shortness of breath, cough, wheezing, and pleuritic chest pain, Abdomen/GI: Negative for abdominal pain, nausea, vomiting, diarrhea, and constipation, Back: Negative for injury and pain, : Negative for injury, bleeding, discharge, and swelling, MS/Extremity: Negative for injury and deformity, Skin: Negative for injury, rash, and discoloration, Neuro: Negative for headache, weakness, numbness, tingling, and seizure, Psych: Negative for depression, anxiety, suicide ideation, homicidal ideation, and hallucinations, Allergy/Immunology: Negative for hives, rash, and allergies, Endocrine: Negative for neck swelling, polydipsia, polyuria, polyphagia, and marked weight changes, Hematologic/Lymphatic: Negative for swollen nodes, abnormal bleeding, and unusual bruising. Exam: 00:17 Head/Face: Normocephalic, atraumatic. Eyes: Pupils equal round and reactive to light, mh7 extra-ocular motions intact. Lids and lashes normal. Conjunctiva and sclera are non-icteric and not injected. Cornea within normal limits. Periorbital areas with no swelling, redness, or edema. ENT: Nares patent. No nasal discharge, no septal abnormalities noted. Tympanic membranes are normal and external auditory canals are clear. Oropharynx with no redness, swelling, or masses, exudates, or evidence of obstruction, uvula midline. Mucous membranes moist. 00:17 Neck: Trachea midline, no thyromegaly or masses palpated, and no cervical lymphadenopathy. Supple, full range of motion without nuchal rigidity, or vertebral point tenderness. No Meningismus. Chest/axilla: Normal chest wall appearance and motion. Nontender with no deformity. No lesions are appreciated. Cardiovascular: Regular rate and rhythm with a normal S1 and S2. No gallops, murmurs, or rubs. Normal PMI, no JVD. No pulse deficits. Respiratory: Lungs have equal breath sounds bilaterally, clear to auscultation and percussion. No rales, rhonchi or wheezes noted. No increased work of breathing, no retractions or nasal flaring. Abdomen/GI: Soft, non-tender, with normal bowel sounds. No distension or tympany. No guarding or rebound. No evidence of tenderness throughout. Back: No spinal tenderness. No costovertebral tenderness. Full range of motion. Skin: Warm, dry with normal turgor. Normal color with no rashes, no lesions, and no evidence of cellulitis. MS/ Extremity: Pulses equal, no cyanosis. Neurovascular intact. Full, normal range of motion. Neuro: Awake and alert, GCS 15, oriented to person, place, time, and situation. Cranial nerves II-XII grossly intact. Motor strength 5/5 in all extremities. Sensory grossly intact. Cerebellar exam normal. Normal gait. Psych: Awake, alert, with orientation to person, place and time. Behavior, mood, and affect are within normal limits. 00:17 Constitutional: The patient appears in no acute distress, alert, awake, smells of alcohol, ETOH, Appears intoxicated 00:17 ENT: TM's: hemotympanum, is not appreciated. Vital Signs: 00:07 BP 121 / 68; Pulse 70; Resp 13; Temp 97.5(O); Pulse Ox 100% on R/A; Weight 117.93 kg lp1 (R); Height 6 ft. 1 in. (185.42 cm); Pain 0/10; 00:14 BP 121 / 68; Pulse 81; Resp 18; Pulse Ox 100% on R/A; mg2 00:47 BP 107 / 84; Pulse 78; Resp 18; Pulse Ox 100% on R/A; mg2 00:07 Body Mass Index 34.30 (117.93 kg, 185.42 cm) lp1 [place] Coma Score: 00:47 Eye Response: spontaneous(4). Verbal Response: oriented(5). Motor Response: obeys mg2 commands(6). Total: 15. Trauma Score (Adult): 00:47 Eye Response: spontaneous(1); Verbal Response: oriented(1); Motor Response: obeys mg2 commands(2); Systolic BP: > 89 mm Hg(4); Respiratory Rate: 10 to 29 per min(4); Wei Score: 15; Trauma Score: 12 MDM: 05:07 Differential Diagnosis: alcohol intoxication, hypoglycemia, overdose, seizure, volume mh7 depletion. Data reviewed: vital signs, nurses notes, EMS record. 05:08 Data interpreted: Pulse oximetry: on room air is 100 %. Interpretation: normal. mh7 Counseling: I had a detailed discussion with the patient and/or guardian regarding: the historical points, exam findings, and any diagnostic results supporting the discharge/admit diagnosis. Response to treatment: the patient's symptoms have markedly improved after treatment. Refusal of service: The patient/guardian displays adequate decision making capability and despite a detailed discussion of alternatives, benefits, risks, and consequences refuses: CT Scan, all X-rays, refused to wait for lab results. ED course: Patient refused CT head and to wait for lab test results. AA\T\ O x 3, NAD, VSS, no focal neurological deficits. Patient requested to leave against medical advice. Patient's was at bedside and agreed to take him home. Explained possibility of disability and/or if serious condition present and goes untreated. He verbalized that he understood information as presented. He knows he can return to ED if he has any concerns. . 04/23 00:08 Order name: Acetaminophen; Complete Time: 05:07 04/23 00:08 Order name: Basic Metabolic Panel; Complete Time: 05:07 04/23 00:08 Order name: CBC with Diff; Complete Time: 05:07 04/23 00:08 Order name: ETOH Level; Complete Time: 05:07 04/23 00:08 Order name: Hepatic Function; Complete Time: 05:07 04/23 00:08 Order name: PT-INR; Complete Time: 05:07 04/23 00:08 Order name: Ptt, Activated; Complete Time: 05:07 04/23 00:08 Order name: Salicylate; Complete Time: 05:07 04/23 00:08 Order name: EKG; Complete Time: 00:10 04/23 00:08 Order name: EKG - Nurse/Tech; Complete Time: 00:14 04/23 00:08 Order name: IV Saline Lock; Complete Time: 00:15 04/23 00:08 Order name: Troponin (emerg Dept Use Only); Complete Time: 05:07 04/23 00:08 Order name: Labs collected and sent; Complete Time: 00:15 7 Administered Medications: No medications were administered Disposition: 04/23/20 00:49 Patient has left against medical advice. - Patients states they are going to Home. - Condition is Stable. Signatures: Dispatcher [employer] EDMichael Hurleya, RN RN lp1 Ryan Aponte RN RN mg2 Jani Sood MD MD mh7
--- NOTE | 2020-04-23 00:49 | ER ---
Nurse's Notes [facility] Name: Joshua Guadalupe Jr Age: 24 yrs Sex: Male : 1995 Arrival Date: 04/23/2020 Time: 00:00 Bed 3 Private MD: Diagnosis: Presentation: 04/23 00:07 Chief complaint: EMS states: Called for patient unresponsive by family; Per EMS, family lp1 reported + ETOH for patient; Per EMS,one arrival patient unresponsive, cyanotic, became A/O x3; Denies any other drug usage, A/O x3 on arrival to ED. Coronavirus screen: Client denies travel out of the [place] in the last 14 days. At this time, the client does not indicate any symptoms associated with coronavirus-19. Ebola Screen: No symptoms or risks identified at this time. Initial Sepsis Screen: Does the patient meet any 2 criteria? No. Patient's initial sepsis screen is negative. Does the patient have a suspected source of infection? No. Patient's initial sepsis screen is negative. Risk Assessment: Do you want to hurt yourself or someone else? Patient reports no desire to harm self or others. Onset of symptoms was April 23, 2020. 00:07 Method Of Arrival: EMS: [facility] 00:07 Acuity: SIMIN 2 lp1 Historical: - Allergies: 00:17 NKA; lp1 - Home Meds: 00:17 None [Active]; lp1 - PMHx: 00:17 Hernia; lp1 - PSHx: 00:17 Appendectomy; Hernia repair; lp1 - Immunization history:: Flu vaccine status is unknown. - Social history:: Smoking status: . Screenin:14 Abuse screen: Denies threats or abuse. Denies injuries from another. Nutritional mg2 screening: No deficits noted. Tuberculosis screening: No symptoms or risk factors identified. Fall Risk IV access (20 points). Assessment: 00:32 General: Appears in no apparent distress. Behavior is cooperative, Smells of alcohol. wh Pain: Denies pain. Neuro: Level of Consciousness is awake, alert, obeys commands, Oriented to person, place, time, situation, Appropriate for age. Cardiovascular: Capillary refill < 3 seconds. Respiratory: Airway is patent Respiratory effort is even, unlabored, Respiratory pattern is regular, symmetrical. GI: Abdomen is flat, non-distended. : No signs and/or symptoms were reported regarding the genitourinary system. EENT: No signs and/or symptoms were reported regarding the EENT system. Derm: Skin is intact, is healthy with good turgor. Musculoskeletal: Circulation, motion, and sensation intact. 00:45 Reassessment: patient is refusing treatment because he wants his to be with him mg2 whenever or wherever he goes and he wants to rest at home and he said he is just drunk. risk explained and he signed AMA form. is taking him home, provider is aware. Vital Signs: 00:07 BP 121 / 68; Pulse 70; Resp 13; Temp 97.5(O); Pulse Ox 100% on R/A; Weight 117.93 kg lp1 (R); Height 6 ft. 1 in. (185.42 cm); Pain 0/10; 00:14 BP 121 / 68; Pulse 81; Resp 18; Pulse Ox 100% on R/A; mg2 00:47 BP 107 / 84; Pulse 78; Resp 18; Pulse Ox 100% on R/A; mg2 00:07 Body Mass Index 34.30 (117.93 kg, 185.42 cm) lp1 Echola Coma Score: 00:47 Eye Response: spontaneous(4). Verbal Response: oriented(5). Motor Response: obeys mg2 commands(6). Total: 15. Trauma Score (Adult): 00:47 Eye Response: spontaneous(1); Verbal Response: oriented(1); Motor Response: obeys mg2 commands(2); Systolic BP: > 89 mm Hg(4); Respiratory Rate: 10 to 29 per min(4); Echola Score: 15; Trauma Score: 12 ED Course: 00:00 Patient arrived in ED. cf2 00:07 Jani Sood MD is Attending Physician. mh7 00:08 Ryan Aponte, PATRICIO is Primary Nurse. mg2 00:15 Triage completed. lp1 00:15 Arm band placed on. lp1 00:17 Patient has correct armband on for positive identification. Placed in gown. Cardiac lp1 monitor on. Pulse ox on. NIBP on. 00:32 Darwin Perla, RN is Primary Nurse. 00:47 No provider procedures requiring assistance completed. IV discontinued, intact, mg2 bleeding controlled, No redness/swelling at site. Pressure dressing applied. Administered Medications: No medications were administered Outcome: 00:48 AMA AMA form signed mg2 00:48 Condition: stable 00:48 Discharge instructions given to patient, family, Instructed on discharge instructions, follow up and referral plans. Demonstrated understanding of instructions, follow-up care. 00:49 Patient left the ED. mg2 Signatures: Kayla Galindo RN RN 1 Darwin Perla RN RN Ryan Aponte RN RN mg2 Danielle Simental 2 Jani Sood MD MD mh7
[2020-04-23 00:52] LABS: ALT/SGPT 53 U/L (12-78); AST/SGOT 31 U/L (15-37); Albumin 3.7 g/dL (3.4-5.0); Alkaline Phosphatase 119 U/L (45-117); BUN Blood Urea Nitrogen 12 mg/dL (7-18); Bicarbonate 23 mmol/L (21-32); Bilirubin Direct < 0.1 mg/dL (0-0.2); Bilirubin Total 0.2 mg/dL (0.2-1.0); Glucose Level 96 mg/dL (74-106); Potassium 3.4 mmol/L (3.5-5.1); Protein, Total 6.9 g/dL (6.4-8.2); Sodium Level 143 mmol/L (136-145); Troponin (Emerg Dept Use Only) < 0.02 ng/mL (0.0-0.045)
[2020-04-23 00:54] VITALS: TEMP 97.5; O2SAT 100
[2020-04-23 00:57] VITALS: BP 107/84
--- NOTE | 2020-04-24 17:13 | EKG ---
Test Date: 2020-04-23 Test Time: 00:10:37 Learning And Development Manager: MEASUREMENT RESULTS: Intervals: Rate: 77 LA: 142 QRSD: 84 QT: 380 QTc: 430 [place]: P: 70 LA: 142 QRS: 79 T: 16 INTERPRETIVE STATEMENTS: Sinus rhythm with premature atrial complexes Otherwise normal ECG Compared to ECG 04/07/2019 12:39:09 Atrial premature complex(es) now present Sinus arrhythmia no longer present Right-axis deviation no longer present Electronically Signed On 04-24-20 17:06:42 COLUMNIST by Octavio Plascencia
== END 2020-04-23 00:49 | disposition left against medical advice (07) ==
LOC: ER 23:59
DX: R41.82 Altered mental status, unspecified (principal)
CPT/HCPCS: 36415; 80048; 80076; 80320; 80329; 84484; 85025; 85610; 85730; 93005; 99284

== ENCOUNTER 2021-11-25 16:46 | Emergency (ER) | payer SELFPAY ==
--- NOTE | 2021-11-25 18:49 | EDPHYS ---
Physician Documentation [facility] Name: Joshua Guadalupe Jr Age: 26 yrs Sex: Male : 1995 Arrival Date: 11/25/2021 Time: 16:47 Bed 11 Private MD: Greg Emery HPI: 11/25 18:40 This 26 yrs old Male presents to ER via Ambulatory with complaints of Rash. jmm 18:40 The rash is located on the head of penis. Onset: The symptoms/episode began/occurred jmm gradually. Associated signs and symptoms: Pertinent positives: itching, Pertinent negatives: fever. Historical: - Allergies: 17:03 NKA; vg1 - Home Meds: 17:03 None [Active]; vg1 - PMHx: 17:03 Hernia; vg1 - PSHx: 17:03 Appendectomy; Hernia Repair; vg1 - Immunization history:: Client reports having NOT received the Covid vaccine. - Social history:: Smoking status: Patient reports the use of cigarette tobacco products, smokes one-half pack cigarettes per day. ROS: 18:40 Constitutional: Negative for fever, chills, and weight loss, Eyes: Negative for injury, jmm pain, redness, and discharge, ENT: Negative for injury, pain, and discharge, Neck: Negative for injury, pain, and swelling, Cardiovascular: Negative for chest pain, palpitations, and edema, Respiratory: Negative for shortness of breath, cough, wheezing, and pleuritic chest pain, Abdomen/GI: Negative for abdominal pain, nausea, vomiting, diarrhea, and constipation, Back: Negative for injury and pain. 18:40 : Positive for penile pain. 18:40 All other systems are negative. Exam: 18:40 Constitutional: This is a well developed, well nourished patient who is awake, alert, jmm and in no acute distress. Head/Face: atraumatic. Eyes: EOMI, no conjunctival erythema appreciated ENT: Moist Mucus Membranes Neck: Trachea midline, Supple Chest/axilla: Normal chest wall appearance and motion. Cardiovascular: Regular rate and rhythm. No edema appreciated Respiratory: Normal respirations, no respiratory distress appreciated Abdomen/GI: Non distended Back: Normal ROM 18:40 Skin: Erythema noted to the head of the penis. 18:40 Neuro: Orientation: is normal, Mentation: is normal, Memory: is normal. 18:40 Psych: Behavior/mood is pleasant, cooperative. Vital Signs: 16:58 Pulse 65; Resp 16; Temp 98.3; Pulse Ox 100% on R/A; Weight 117.93 kg; Height 6 ft. 1 vg1 in. (185.42 cm); Pain 7/10; 17:05 BP 123 / 67; vg1 18:38 BP 120 / 41; Pulse 65; Resp 16; Pulse Ox 100% on R/A; tp1 16:58 Body Mass Index 34.30 (117.93 kg, 185.42 cm) vg1 MDM: 17:10 Patient medically screened. [facility] 18:47 Data reviewed: vital signs, nurses notes. Counseling: I had a detailed discussion with [facility] the patient and/or guardian regarding: the historical points, exam findings, and any diagnostic results supporting the discharge/admit diagnosis, lab results, the need for outpatient follow up, to return to the emergency department if symptoms worsen or persist or if there are any questions or concerns that arise at home. 11/25 18:05 Order name: Glucose, Ancillary Testing; Complete Time: 18:17 EDMS 11/25 17:35 Order name: Fingerstick Glucose; Complete Time: 18:31 [facility] Administered Medications: No medications were administered Disposition Summary: 11/25/21 18:48 Discharge Ordered Location: Home [facility] Condition: Stable [facility] Diagnosis - Rash and other nonspecific skin eruption [facility] Followup: [facility] - With: Jamshid Oliver MD - When: 2 - 3 days - Reason: Recheck today's complaints, Continuance of care, Re-evaluation by your physician Discharge Instructions: - Discharge Summary Sheet [facility] Forms: - Medication Reconciliation Form [facility] - Thank You Letter [facility] - Antibiotic Education [facility] - Prescription Opioid Use [facility] Prescriptions: - nystatin 100,000 unit/gram Topical ointment - apply 1 application by TOPICAL route 2 times per day; 1 tube; Refills: 0, [facility] Product Selection Permitted - Bactrim DS 800-160 mg Oral Tablet - take 1 tablet by ORAL route every 12 hours for 10 days; 20 tablet; Refills: 0, [facility] Product Selection Permitted Signatures: Jasper, Greg, MD MD jaiden Mickail, Jesus, PA PA jmm Bob, Brittany, RN RN vg1
--- NOTE | 2021-11-25 18:49 | ER ---
Nurse's Notes [facility] Name: Joshua Guadalupe Jr Age: 26 yrs Sex: Male : 1995 Arrival Date: 11/25/2021 Time: 16:47 Bed 11 Private MD: Diagnosis: Rash and other nonspecific skin eruption Presentation: 11/25 16:58 Chief complaint: Patient states: On 11/18 noticed purple coloration, quarter size,on vg1 right side of head of penis; today noticed it is bright head and tender to touch; denies burning upon urination or discharge. Coronavirus screen: Vaccine status: Patient reports being unvaccinated. Client denies travel out of the [place] in the last 14 days. Ebola Screen: Patient negative for fever greater than or equal to 101.5 degrees Fahrenheit, and additional compatible Ebola Virus Disease symptoms Patient denies exposure to infectious person. Initial Sepsis Screen: Does the patient meet any 2 criteria? No. Patient's initial sepsis screen is negative. Does the patient have a suspected source of infection? No. Patient's initial sepsis screen is negative. Risk Assessment: Do you want to hurt yourself or someone else? Patient reports no desire to harm self or others. Onset of symptoms was November 18, 2021. 16:58 Method Of Arrival: Ambulatory [facility] 16:58 Acuity: SIMIN 4 vg1 Triage Assessment: 17:03 General: Appears in no apparent distress. uncomfortable, Behavior is calm, cooperative. vg1 Pain: Complains of pain in groin Pain currently is 10 out of 10 on a pain scale. : Denies burning with urination. Historical: - Allergies: 17:03 NKA; vg1 - Home Meds: 17:03 None [Active]; vg1 - PMHx: 17:03 Hernia; vg1 - PSHx: 17:03 Appendectomy; Hernia Repair; vg1 - Immunization history:: Client reports having NOT received the Covid vaccine. - Social history:: Smoking status: Patient reports the use of cigarette tobacco products, smokes one-half pack cigarettes per day. Screenin:20 Abuse screen: Denies threats or abuse. Denies injuries from another. Nutritional tp1 screening: No deficits noted. Tuberculosis screening: No symptoms or risk factors identified. Fall Risk None identified. Assessment: 17:10 General: Appears in no apparent distress. comfortable, Behavior is calm, cooperative. tp1 17:10 Pain: Complains of pain in pelvis Pain does not radiate. Pain currently is 7 out of 10 tp1 on a pain scale. at worst was 10 out of 10 on a pain scale. Quality of pain is described as dull, Pain began 1 week ago Is continuous, Aggravated by touch. Neuro: Level of Consciousness is awake, alert, obeys commands, Oriented to person, place, time, situation. Cardiovascular: Patient's skin is warm and dry. Respiratory: Airway is patent Respiratory effort is even, unlabored, Respiratory pattern is regular. GI: Abdomen is round non-distended. GI: Patient currently denies diarrhea, nausea, vomiting. : top right side of head of penis appears red, pt state sight scabbed over but scab fell off after application of triple antibiotic ointment Reports pain increases when anything touches site Denies burning with urination, discharge, inability to void, denies itching. EENT: No signs and/or symptoms were reported regarding the EENT system. Derm: Skin is pink, warm \T\ dry. Musculoskeletal: Circulation, motion, and sensation intact. 18:30 Reassessment: Patient appears in no apparent distress at this time. No changes from tp1 previously documented assessment. Patient and/or family updated on plan of care and expected duration. Pain level reassessed. Patient is alert/active/playful, equal unlabored respirations, skin warm/dry/pink. Vital Signs: 16:58 Pulse 65; Resp 16; Temp 98.3; Pulse Ox 100% on R/A; Weight 117.93 kg; Height 6 ft. 1 vg1 in. (185.42 cm); Pain 7/10; 17:05 BP 123 / 67; vg1 18:38 BP 120 / 41; Pulse 65; Resp 16; Pulse Ox 100% on R/A; tp1 16:58 Body Mass Index 34.30 (117.93 kg, 185.42 cm) vg1 ED Course: 16:47 Patient arrived in ED. am2 16:59 Jesus Schmidt PA is PHCP. [facility] 16:59 Greg Hutchinson MD is Attending Physician. [facility] 17:03 Triage completed. vg1 17:03 Arm band placed on. vg1 17:08 Kelly Perales, RN is Primary Nurse. tp1 17:10 Patient has correct armband on for positive identification. Placed in gown. Bed in low tp1 position. Call light in reach. Adult w/ patient. 18:48 Jamshid Oliver MD is Referral Physician. [facility] 18:56 No provider procedures requiring assistance completed. Patient did not have IV access tp1 during this emergency room visit. Administered Medications: No medications were administered Medication: 18:56 VIS not applicable for this client. tp1 Outcome: 18:48 Discharge ordered by . [facility] 18:56 Discharged to home ambulatory, with friend. tp1 18:56 Condition: good 18:56 Discharge instructions given to patient, Instructed on discharge instructions, follow up and referral plans. medication usage, Demonstrated understanding of instructions, follow-up care, medications, Prescriptions given X 2. 18:57 Patient left the ED. tp1 Signatures: Jesus Schmidt PA PA jmm Moreno, Amanda am2 Brittany Rojas, PATRICIO RN vg1 Kelly Perales, RN RN tp1
[2021-11-25 19:09] VITALS: TEMP 98.3; O2SAT 100
[2021-11-25 19:11] VITALS: BP 120/41
== END 2021-11-25 18:57 | disposition home or self-care (01) ==
LOC: ER 16:46
DX: R21 Rash and other nonspecific skin eruption (principal); F17.210 Nicotine dependence, cigarettes, uncomplicated; Z28.310 Unvaccinated for COVID-19
CPT/HCPCS: 82947; 99282

== ENCOUNTER 2022-07-07 15:24 | Emergency (ER) | payer SELFPAY ==
[2022-07-07 16:29] LABS: SARS-CoV-2 Antigen Rapid Res Negative (Negative)
--- NOTE | 2022-07-07 16:48 | ER ---
Nurse's Notes [facility] Name: Joshua Guadalupe Jr Age: 26 yrs Sex: Male : 1995 Arrival Date: 07/07/2022 Time: 15:24 Bed DIS9 Private MD: Diagnosis: Viral infection, unspecified Presentation: 07/07 15:39 Chief complaint: Congestion and sore throat x 6 days, N/D today. Coronavirus screen: hb Client presents with at least one sign or symptom that may indicate coronavirus-19. Provider contacted for isolation considerations. Ebola Screen: No symptoms or risks identified at this time. Initial Sepsis Screen: Does the patient meet any 2 criteria? No. Patient's initial sepsis screen is negative. Does the patient have a suspected source of infection? No. Patient's initial sepsis screen is negative. Risk Assessment: Do you want to hurt yourself or someone else? Patient reports no desire to harm self or others. Onset of symptoms was July 01, 2022. 15:39 Method Of Arrival: Ambulatory 15:39 Acuity: SIMIN 4 hb Triage Assessment: 17:23 General: Appears in no apparent distress. comfortable, Behavior is calm, cooperative. db Respiratory: Reports pain with cough Onset: The symptoms/episode began/occurred gradually, the patient has mild shortness of breath. Historical: - Allergies: 15:40 NKA; hb - PMHx: 15:40 Hernia; hb - PSHx: 15:40 Appendectomy; hernia repair; hb - Immunization history:: Adult Immunizations up to date. - Social history:: Smoking status: Reported history of juuling and/or vaping. Screenin:00 [facility] ED Fall Risk Assessment (Adult) History of falling in the last 3 months, db including since admission No falls in past 3 months (0 pts) Confusion or Disorientation No (0 pts) Intoxicated or Sedated No (0 pts) Impaired Gait No (0 pts) Mobility Assist Device Used No (0 pt) Altered Elimination No (0 pt) Score/Fall Risk Level 0 - 2 = Low Risk Oriented to surroundings, Maintained a safe environment. Abuse screen: Denies threats or abuse. Denies injuries from another. Nutritional screening: No deficits noted. Tuberculosis screening: No symptoms or risk factors identified. Assessment: 15:50 Reassessment: Patient appears in no apparent distress at this time. Patient and/or db family updated on plan of care and expected duration. Pain level reassessed. Patient is alert, oriented x 3, equal unlabored respirations, skin warm/dry/pink. General: Appears in no apparent distress. comfortable, Behavior is calm, cooperative. Pain: Complains of pain in abdomen. Neuro: Level of Consciousness is awake, alert, obeys commands, Oriented to person, place, time, situation. Cardiovascular: Denies chest pain, Rhythm is regular. Respiratory: Airway is patent Respiratory effort is even, unlabored, Breath sounds with wheezes. 17:22 Reassessment: Patient appears in no apparent distress at this time. Patient and/or db family updated on plan of care and expected duration. Pain level reassessed. Patient is alert, oriented x 3, equal unlabored respirations, skin warm/dry/pink. Vital Signs: 15:39 BP 129 / 72; Pulse 88; Resp 16; Temp 98.2(O); Pulse Ox 100% on R/A; Weight 117.93 kg; db Height 6 ft. 1 in. ; Pain 2/10; 17:22 BP 122 / 70; Pulse 88; Resp 16; Pulse Ox 100% on R/A; db 15:39 Body Mass Index 34.30 (117.93 kg, 185.42 cm) db 15:39 Pain Scale: Adult db ED Course: 15:26 Patient arrived in ED. ts1 15:28 Johanna Bhagat FNP-C is [facility]. snw 15:28 Georgi Ward MD is Attending Physician. snw 15:40 Triage completed. hb 15:40 Arm band placed on. hb 15:48 Roselia Schafer, RN is Primary Nurse. db 16:00 Patient has correct armband on for positive identification. Bed in low position. Call db light in reach. Side rails up X 1. Client placed on continuous cardiac and pulse oximetry monitoring. NIBP monitoring applied. 16:00 No provider procedures requiring assistance completed. Patient did not have IV access db during this emergency room visit. Administered Medications: No medications were administered Medication: 15:50 VIS not applicable for this client. db Outcome: 16:48 Discharge ordered by . snw 17:17 Patient left the ED. hb 17:23 Discharged to home ambulatory, with family. db 17:23 Condition: stable 17:23 Discharge instructions given to patient, Instructed on discharge instructions, follow up and referral plans. Prescriptions given X 1. Signatures: Johanna Bhagat, JAZZMINE-C APPLIANCE PAINTER AND REFINISHER-Csnw Rose Zepeda RN RN hb Benton, Danielle, RN RN db Ethel May, DAYANARA PAS ts1 Corrections: (The following items were deleted from the chart) 15:42 15:39 Pulse 88bpm; Resp 16bpm; Pulse Ox 100% RA; Temp 98.2F Oral; 117.93 kg; Height 6 db ft. 1 in.; BMI: 34.3; Pain 2/10, Adult; hb
--- NOTE | 2022-07-07 16:48 | EDPHYS ---
Physician Documentation [facility] Name: Joshua Guadalupe Jr Age: 26 yrs Sex: Male : 1995 Arrival Date: 07/07/2022 Time: 15:24 Bed DIS9 Private MD: ED Physician Georgi Ward HPI: 07/07 15:45 This 26 yrs old Male presents to ER via Ambulatory with complaints of Shortness Of snw Breath, Chest Pain, Diarrhea. 15:45 Onset: The symptoms/episode began/occurred acutely, 6 day(s) ago, and became snw persistent. Duration: The symptoms are continuous. Severity of symptoms: At their worst the symptoms were moderate. It is unknown whether or not the patient has had similar symptoms in the past. The patient has not recently seen a physician. Daughter with similar s/s. Historical: - Allergies: 15:40 NKA; hb - PMHx: 15:40 Hernia; hb - PSHx: 15:40 Appendectomy; hernia repair; hb - Immunization history:: Adult Immunizations up to date. - Social history:: Smoking status: Reported history of juuling and/or vaping. ROS: 15:45 Eyes: Negative for injury, pain, redness, and discharge. snw 15:45 Cardiovascular: Negative for chest pain, palpitations, and edema, Respiratory: Negative for shortness of breath, cough, wheezing, and pleuritic chest pain. 15:45 Back: Negative for injury and pain, : Negative for injury, bleeding, discharge, and swelling, MS/Extremity: Negative for injury and deformity, Skin: Negative for injury, rash, and discoloration, Neuro: Negative for headache, weakness, numbness, tingling, and seizure. 15:45 Constitutional: Positive for body aches, fatigue, malaise, poor PO intake. 15:45 ENT: Positive for sore throat. 15:45 Abdomen/GI: Positive for abdominal pain, nausea, vomiting, and diarrhea. Exam: 15:42 Constitutional: This is a well developed, well nourished patient who is awake, alert, snw and in no acute distress. Head/Face: Normocephalic, atraumatic. Eyes: Pupils equal round and reactive to light, extra-ocular motions intact. Lids and lashes normal. Conjunctiva and sclera are non-icteric and not injected. Cornea within normal limits. Periorbital areas with no swelling, redness, or edema. ENT: Nares patent. No nasal discharge, no septal abnormalities noted. Tympanic membranes are normal and external auditory canals are clear. Oropharynx with no redness, swelling, or masses, exudates, or evidence of obstruction, uvula midline. Mucous membranes moist. Neck: Trachea midline, no thyromegaly or masses palpated, and no cervical lymphadenopathy. Supple, full range of motion without nuchal rigidity, or vertebral point tenderness. No Meningismus. Chest/axilla: Normal chest wall appearance and motion. Nontender with no deformity. No lesions are appreciated. Cardiovascular: Regular rate and rhythm with a normal S1 and S2. No gallops, murmurs, or rubs. Normal PMI, no JVD. No pulse deficits. Respiratory: Lungs have equal breath sounds bilaterally, clear to auscultation and percussion. No rales, rhonchi noted, mild wheezes noted. No increased work of breathing, no retractions or nasal flaring. Abdomen/GI: Soft, non-tender, with normal bowel sounds. No distension or tympany. No guarding or rebound. No evidence of tenderness throughout. Back: No spinal tenderness. No costovertebral tenderness. Full range of motion. Skin: Warm, dry with normal turgor. Normal color with no rashes, no lesions, and no evidence of cellulitis. MS/ Extremity: Pulses equal, no cyanosis. Neurovascular intact. Full, normal range of motion. Neuro: Awake and alert, GCS 15, oriented to person, place, time, and situation. Cranial nerves II-XII grossly intact. Motor strength 5/5 in all extremities. Sensory grossly intact. Cerebellar exam normal. Normal gait. Psych: Awake, alert, with orientation to person, place and time. Behavior, mood, and affect are within normal limits. Vital Signs: 15:39 BP 129 / 72; Pulse 88; Resp 16; Temp 98.2(O); Pulse Ox 100% on R/A; Weight 117.93 kg; db Height 6 ft. 1 in. ; Pain 2/10; 17:22 BP 122 / 70; Pulse 88; Resp 16; Pulse Ox 100% on R/A; db 15:39 Body Mass Index 34.30 (117.93 kg, 185.42 cm) db 15:39 Pain Scale: Adult db MDM: 15:31 Patient medically screened. snw 17:05 Differential diagnosis: asthma, Bronchitis Chronic Obstructive Pulmonary Disease. Data snw reviewed: vital signs, nurses notes, lab test result(s). Historians other than the Patient: Spouse/Significant Other: . Counseling: I had a detailed discussion with the patient and/or guardian regarding: the historical points, exam findings, and any diagnostic results supporting the discharge/admit diagnosis, lab results. Special discussion: Based on the history and exam findings, there is no indication for further emergent testing or inpatient evaluation. I discussed with the patient/guardian the need to see the primary care provider for further evaluation of the symptoms. 07/07 15:38 Order name: Flu; Complete Time: 16:47 snw 07/07 15:38 Order name: SARS RAPID; Complete Time: 16:30 snw 07/07 15:45 Order name: Strep snw 07/07 16:41 Order name: Throat Culture EDMS Administered Medications: No medications were administered Disposition: 17:20 Co-signature as Attending Physician, Georgi Ward MD I agree with the assessment and kdr plan of care. Disposition Summary: 07/07/22 16:48 Discharge Ordered Location: Home snw Condition: Stable snw Diagnosis - Viral infection, unspecified snw Followup: snw - With: Emergency Department - When: As needed - Reason: Worsening of condition Followup: snw - With: Private Physician - When: 2 - 3 days - Reason: Recheck today's complaints, Continuance of care, Re-evaluation by your physician Discharge Instructions: - Discharge Summary Sheet snw - Viral Respiratory Infection snw - Rehydration, Adult snw Forms: - Work release form snw - Medication Reconciliation Form snw - Thank You Letter snw - Antibiotic Education snw - Prescription Opioid Use snw Prescriptions: - promethazine 25 mg Oral Tablet - take 1 tablet by ORAL route every 6 hours As needed; 20 tablet; Refills: 0, snw Product Selection Permitted Signatures: Dispatcher [employer] EDMS Georgi Ward MD MD kdr Waters, Shelly, DIV[employer]OURCES MANAGER-C DIV[employer] H[employer] RESOURCES MANAGER-Csnw Rose Zepeda, RN RN
[2022-07-07 17:20] VITALS: BP 129/72; TEMP 98.2; O2SAT 100
== END 2022-07-07 17:17 | disposition home or self-care (01) ==
LOC: ER 15:24
DX: J06.9 Acute upper respiratory infection, unspecified (principal); Z20.822 Contact with and (suspected) exposure to COVID-19
CPT/HCPCS: 36415; 87070; 87081; 87804; 87811; 99283